=== PATIENT | male | born 1985 | race Caucasian/White ===

== ENCOUNTER 2019-11-08 00:10 | Emergency (ER) | payer SELFPAY ==
--- NOTE | ~2019-11-08 | CT_ITS ---
EXAMINATION: CT lumbar spine wo con DATE: 11/08/2019 00:40 INDICATION: Low back pain, radiating to right leg; lifting injury. TECHNIQUE: Computed tomography (CT) of the lumbar spine was performed without intravenous contrast. T he mA was adjusted according to patient size. Iterative reconstruction technique was employed. Exam d ose: 212.84 mGy-cm total exam DLP. Lumbar spine COMPARISON: None FINDINGS: No fracture, dislocation, spondylolysis or spondylolisthesis of the lumbar spine. No bone d estruction is detected. There is moderate sized broad-based disc bulge at the L5-S1 level resulting in mild central canal suzie nosis. Mild left-sided neural foraminal stenosis at the L5-S1 level. The sacroiliac joints are intact. Incidental finding of probable 3 cm right renal cyst IMPRESSION: Moderate posterior disc bulging at L5-S1 and mild left-sided neural foraminal stenosis a t L5-S1 Reviewed, dictated and finalized at [facility]. Reviewed, dictated and finalized at [facility]. IMPRESSION: Moderate posterior disc bulging at L5-S1 and mild left-sided neura l foraminal stenosis at L5-S1
[2019-11-08 00:13] VITALS: BP 124/71; PULSE 63; RESP 16; TEMP 36.7; O2SAT 100
--- NOTE | 2019-11-08 00:22 | ED.BACK ---
HPI - Back Pain/Injury General Chief Complaint: Back Pain/Injury Stated Complaint: Lower Back Pain Time Seen by Provider: 11/08/19 00:22 Source: patient and family Mode of arrival: ambulatory Limitations: no limitations History of Present Illness HPI Narrative: The patient is a 34-year-old male who presents for evaluation of back pain. Patient reports that he was lifting a heavy dresser yesterday when he felt a pop in his lower back with immediate lower back pain. Patient reports that the pain is aching, sharp in nature, worse with movement and radiates into the lower right leg. No buttock pain. Patient has been ambulatory, but this does aggravate his pain. Forward bending also makes the pain worse. No history of cancer. No bowel or bladder incontinence. No numbness. Patient has been taking ibuprofen for the pain with minimal improvement. Patient denies fever, nausea or vomiting. Related Data Allergies Allergy/AdvReac Type Severity Reaction Status Date / Time No Known Allergies Allergy Unverified 11/28/18 02:16 Review of Systems Review of Systems: Narrative: CONSTITUTIONAL: Denies fever, chills, or sweats. CARDIOVASCULAR: Denies chest pain RESPIRATORY: Denies cough or dyspnea. GASTROINTESTINAL: Denies abdominal pain, nausea, vomiting, or diarrhea. GENITOURINARY: Denies dysuria or hematuria. SKIN: Denies rash or itching. MUSCULOSKELETAL: Reports back pain NEUROLOGIC: Denies headache, numbness, or weakness. PMFSH Past Medical History Medical History (Updated 11/08/19 @ 01:01 by Mindy Mejia MD) History of pneumothorax Social History Social History (Updated 11/08/19 @ 00:31 by Mindy Mejia MD) Smoking status: Current every day smoker Tobacco type: cigarettes Second hand tobacco smoke exposure: Yes Alcohol intake: never Substance use: current Substance use type: marijuana Living arrangements: with family Exam Narrative: Exam Narrative: GENERAL: Well-appearing, well-nourished, and in no acute distress. HEAD: Normocephalic, atraumatic. EYES: PERRLA and EOMI. ENT: Nares clear, no rhinorrhea or epistaxis. Mucous membranes moist. NECK: Supple. THORAX: No cervical, thoracic midline pain. + Lumbar midline pain. CHEST: Clear to auscultation. No respiratory distress. HEART: Regular rate and rhythm. No murmur heard. Normal peripheral pulses. ABDOMEN: Soft, nontender, nondistended, normal active bowel sounds. EXTREMITIES: Normal range of motion. No edema. SKIN: Warm, dry, no rash. NEURO: No focal deficits. Alert and oriented x3. EOMs intact without nystagmus. No facial droop/asymmetry noted bilaterally. Grimace intact. Intact sensation in face. Hearing intact bilaterally. Shoulder shrug intact. Strength 5/5 bilateral upper extremities. Strength 5/5 bilateral lower extremities. Reflexes 2+ patellar. Intact EHL/FHL. Intact neurovascularly. Ambulatory with a narrow based steady gait, no ataxia. Course Vital Signs Vital signs: Vital Signs Temperature 36.7 C 11/08/19 00:13 Pulse Rate 63 11/08/19 00:13 Respiratory Rate 16 11/08/19 00:13 Blood Pressure 124/71 11/08/19 00:13 Pulse Oximetry 100 11/08/19 00:13 Temperature 36.7 C 11/08/19 00:13 Pulse Rate 63 11/08/19 00:13 Respiratory Rate 16 11/08/19 00:13 Blood Pressure 124/71 11/08/19 00:13 Pulse Oximetry 100 11/08/19 00:13 MDM - Back Pain/Injury MDM Narrative Medical decision making narrative: Given History and Exam the patient appears to be at low risk for Spinal Cord Compression Syndrome, Vertebral Malignancy/Mets, acute Spinal Fracture, Vertebral Osteomyelitis, Epidural Abscess, Infected or Obstructing Kidney Stone. Their presentation appears most likely to be secondary to non-emergent musculoskeletal etiology vs non-emergent disc herniation. Pain is reproducible, and patient has no other high risk factors such as history of malignancy, weight loss, infectious symptoms. ED Workup: Imaging confirms L5
[2019-11-08] MEDS: DIAZEPAM 5 MG TABLET PO (01:07)
[2019-11-08] MEDS: ACETAMINOPHEN 500 MG TABLET 1000 MG PO (01:08)
[2019-11-08] MEDS: KETOROLAC (*BKC) 60 MG/2 ML VIAL 30 MG IM (01:12)
[2019-11-08 01:26] VITALS: BP 133/72; PULSE 80; RESP 16; TEMP 36.8; O2SAT 100
== END 2019-11-08 01:27 | disposition home or self-care (01) ==
PROVIDERS: Emergency Provider Emergency Medicine
DX: M51.27 Other intervertebral disc displacement, lumbosacral region (principal); S39.012A Strain of muscle, fascia and tendon of lower back, initial encounter; F17.210 Nicotine dependence, cigarettes, uncomplicated; X50.0XXA Overexertion from strenuous movement or load, initial encounter
CPT/HCPCS: 72131; 96372; 99284; A9270; J1100; J1885

== ENCOUNTER 2021-01-21 21:07 | Emergency (ER) | payer SELFPAY ==
--- NOTE | ~2021-01-21 | XR_ITS ---
XR foot RT min 3V 01/21/2021 21:45 INDICATION: Right foot pain PROCEDURE: 4 views right foot COMPARISON: 03/13/2016 FINDINGS: There is a healed right third metatarsal fracture Lisfranc joint intact. No acute fracture or traumatic malalignment. The soft tissues appear within normal limits. No foreign bodies are ident ified. IMPRESSION: 1: NO ACUTE BONE OR JOINT ABNORMALITY IDENTIFIED. Reviewed, dictated and finalized at [facility].
[2021-01-21 21:08] VITALS: BP 120/74; PULSE 90; RESP 16; TEMP 37.3; O2SAT 97
--- NOTE | 2021-01-21 21:32 | ED.EXTPRO ---
HPI - Extremity Problem General Chief complaint: Extremity Problem,Nontraumatic Stated complaint: thinks foot is broken Time Seen by Provider: 01/21/21 21:15 Source: patient Mode of arrival: ambulatory Limitations: no limitations History of Present Illness HPI Narrative: Patient is a 35 year old male who presents complaining of right foot pain. Patient reports kicked a box he thought was empty. He reports pain to dorsal right foot, mild swelling noted. He denies taking over the counter medications for pain prior to arrival. Reports pain with ambulation. Denies all other complaints at this time, denies significant medical history. MD Complaint: extremity pain Related Data Allergies Allergy/AdvReac Type Severity Reaction Status Date / Time No Known Allergies Allergy Verified 01/21/21 21:23 Review of Systems Review of Systems: Narrative: CONSTITUTIONAL: Denies fever, chills, or sweats. EYES: Denies visual changes, redness, or discharge. ENT: Denies rhinorrhea, congestion, sore throat, or otalgia. CARDIOVASCULAR: Denies chest pain, palpitations, or edema. RESPIRATORY: Denies cough or dyspnea. GASTROINTESTINAL: Denies abdominal pain, nausea, vomiting, or diarrhea. GENITOURINARY: Denies dysuria or hematuria. SKIN: Denies rash or itching. MUSCULOSKELETAL: Right foot pain NEUROLOGIC: Denies headache, numbness, dizziness, or weakness. PSYCHIATRIC: Denies anxiety or depression. PMFSH Past Medical History Medical History Asthma History of pneumothorax Social History Social History Smoking status: Current every day smoker Tobacco type: cigarettes Second hand tobacco smoke exposure: Yes Alcohol intake: never Substance use: current Substance use type: marijuana Gender identity (if verbalized by the patient): Male Comments At the time of signature, I have reviewed and agree with nursing past medical, surgical, social, and family history unless otherwise noted. Please see nursing chart for further information. There is no relevant family history pertinent to the presenting complaint. Exam Narrative: Exam Narrative: GENERAL: Well-appearing, well-nourished, and in no acute distress. HEAD: Normocephalic, atraumatic. EYES: EOMI. No redness or drainage. Conjunctiva are normal. ENT: Mucous membranes pink and moist. CHEST: No respiratory distress. Clear to auscultation. HEART: Regular rate and rhythm. No murmur appreciated. Normal peripheral pulses. EXTREMITIES: Mild edema to right dorsal foot, tenderness with palpation at third and fourth metatarsal SKIN: Warm, dry, no rash. NEURO: No focal deficits. Alert and oriented x3. Gait steady. PSYCH: Normal affect. No signs of depression or anxiety. Course Vital Signs Vital signs: Vital Signs Temperature 37.3 C 01/21/21 21:08 Pulse Rate 90 01/21/21 21:08 Respiratory Rate 16 01/21/21 21:08 Blood Pressure 120/74 01/21/21 21:08 Pulse Oximetry 97 01/21/21 21:08 Temperature 37.3 C 01/21/21 21:08 Pulse Rate 90 01/21/21 21:08 Respiratory Rate 16 01/21/21 21:08 Blood Pressure 120/74 01/21/21 21:08 Pulse Oximetry 97 01/21/21 21:08 Reviewed MDM - Extremity (Nontraumatic) MDM Narrative Medical decision making narrative: Patient's x-ray shows no acute osseous abnormality. Discussed with patient most likely contusion. [place] wrap for comfort and postop shoe as needed. Patient agrees with plan of care. Patient is stable for discharge home with outpatient follow-up as needed. Differential Diagnosis Differential diagnosis: Likely other (Strain, sprain, contusion) Imaging Data Radiologist's impression: ITS Impressions Foot X-Ray 01/21/21 21:50 IMPRESSION: 1: NO ACUTE BONE OR JOINT ABNORMALITY IDENTIFIED. Critical Care Time Critical Care Time Critical Care Time: No Discharge Plan Discharge Clinical Impressio
[2021-01-21 22:12] VITALS: BP 136/78; PULSE 87; RESP 18; O2SAT 100
== END 2021-01-21 22:15 | disposition home or self-care (01) ==
PROVIDERS: Emergency Provider Nurse Practitioner
DX: S90.31XA Contusion of right foot, initial encounter (principal); J45.909 Unspecified asthma, uncomplicated; F17.210 Nicotine dependence, cigarettes, uncomplicated; W22.8XXA Striking against or struck by other objects, initial encounter
CPT/HCPCS: 73630; 99283

== ENCOUNTER 2022-03-08 17:25 | Emergency (ER) | payer SELFPAY ==
[2022-03-08 17:27] VITALS: BP 131/84; PULSE 84; RESP 20; TEMP 36.3; O2SAT 94
--- NOTE | 2022-03-08 18:21 | ED.LOWEXIN ---
HPI - Extremity Injury (Lower) General Chief Complaint: Extremity Injury, Lower Stated Complaint: rt hip pain Time Seen by Provider: 03/08/22 17:31 History of Present Illness HPI Narrative: 37-year-old male presents the emergency room for evaluation of right leg pain. Patient states states he slept in his recliner chair last night, and believes he might of rolled over to his right hip. Patient states that he woke up this morning with tenderness over his right hip, that is worse with movement and ambulation. Patient denies any injury or trauma. States the pain is kind of sharp and stabbing pain that radiates into his thigh. Related Data Allergies Allergy/AdvReac Type Severity Reaction Status Date / Time No Known Allergies Allergy Verified 01/21/21 21:23 Review of Systems Review of Systems: CONSTITUTIONAL: Denies fever, chills, or sweats. EYES: Denies visual changes, redness, or discharge. ENT: Denies rhinorrhea, congestion, sore throat, or otalgia. CARDIOVASCULAR: Denies chest pain, palpitations, or edema. RESPIRATORY: Denies cough or dyspnea. GASTROINTESTINAL: Denies abdominal pain, nausea, vomiting, or diarrhea. GENITOURINARY: Denies dysuria or hematuria. SKIN: Denies rash or itching. MUSCULOSKELETAL: Reports right hip pain NEUROLOGIC: Denies headache, numbness, dizziness, or weakness. PSYCHIATRIC: Denies anxiety or depression. PMFSH Past Medical History Medical History Asthma History of pneumothorax Social History Social History Smoking status: Current every day smoker Tobacco type: cigarettes Second hand tobacco smoke exposure: Yes Alcohol intake: never Substance use: current Substance use type: marijuana Gender identity (if verbalized by the patient): Male Exam Narrative: GENERAL: Well-appearing, well-nourished, no physical limitations, and in no acute distress. HEAD: Normocephalic, atraumatic. EYES: Conjunctivae normal, PERRLA and EOMI. CHEST: Clear to auscultation. No respiratory distress. No wheezes rales or rhonchi. No tenderness. HEART: Regular rate and rhythm. No murmur heard. Normal peripheral pulses. BACK: No CVA tenderness; No cervical/thoracic/lumbar tenderness, step-offs, bony abnormality; FROM EXTREMITIES: Right lower extremity: Tenderness over the trochanter with mild soft tissue swelling. No ecchymosis no bony abnormality. Pain elicited when hip is moved and IR, ER, and flexion SKIN: Warm, dry, no rash. No noted wounds NEURO: No focal deficits. Alert and oriented x3. MAEW. CN's II-XI intact bilaterally, normal gait PSYCH: Cooperative. Normal mood and affect. Course Vital Signs Vital signs: Vital Signs Temperature 36.3 C L 03/08/22 17:27 Pulse Rate 84 03/08/22 17:27 Respiratory Rate 20 03/08/22 17:27 Blood Pressure 131/84 03/08/22 17:27 Pulse Oximetry 94 03/08/22 17:27 Oxygen Delivery Room Air 03/08/22 17:27 Temperature 36.3 C L 03/08/22 17:27 Pulse Rate 84 03/08/22 17:27 Respiratory Rate 20 03/08/22 17:27 Blood Pressure 131/84 03/08/22 17:27 Pulse Oximetry 94 03/08/22 17:27 Oxygen Delivery Room Air 03/08/22 17:27 Discharge Plan Discharge Clinical Impression: Greater trochanteric bursitis of right hip Patient Disposition: Home, Self-Care Condition: Stable Instructions: Antibiotic Form Additional Instructions: Tylenol and ibuprofen as needed. May apply ice to the affected area to decrease swelling. Prescriptions: New prednisone 20 mg tablet 60 mg PO DAILY 5 Days Qty: 15 0RF No Action lidocaine 4 % adhesive patch,medicated 1 patch TOPICAL Q24H 20 Days Qty: 20 0RF Rx Instructions: may leave on for up to 12 hrs ibuprofen 400 mg tablet 400 mg PO TID PRN (Reason: fever or pain) 10 Days Qty: 30 0RF acetaminophen 500 mg capsule 500 mg PO Q6H PRN (Reason: fever or pain) Qty:
== END 2022-03-08 19:18 | disposition home or self-care (01) ==
PROVIDERS: Emergency Provider Nurse Practitioner Family
DX: M70.61 Trochanteric bursitis, right hip (principal); J45.909 Unspecified asthma, uncomplicated
CPT/HCPCS: 96372; 99283; J1100

== ENCOUNTER 2023-05-27 22:04 | Emergency (ER) | payer SELFPAY ==
--- NOTE | ~2023-05-27 | XR_ITS ---
EXAMINATION: XR chest 2V DATE: 05/27/2023 22:35 INDICATION: Cough, hemoptysis TECHNIQUE: PA and lateral views of the chest are obtained. COMPARISON: None available FINDINGS: The lungs are hyperinflated but free of acute opacities. No pleural effusion or pneumothora x. The cardiomediastinal silhouette is normal. There is mild thoracic spondylosis. IMPRESSION: 1. No acute cardiopulmonary abnormality. Reviewed, dictated and finalized at [facility].
[2023-05-27 22:11] VITALS: BP 110/73; PULSE 83; RESP 18; TEMP 36.4; O2SAT 98
[2023-05-27 23:17] VITALS: PULSE 74
[2023-05-27 23:18] VITALS: BP 125/88; PULSE 72; RESP 12; TEMP 36.6; O2SAT 99
[2023-05-27 23:19] VITALS: O2SAT 100
--- NOTE | 2023-05-27 23:21 | PC.NURSE ---
Patient states his anxiety is bad right now and would like something for it
[2023-05-28 00:18] VITALS: BP 112/71; PULSE 60; RESP 18; O2SAT 96
--- NOTE | 2023-05-28 01:35 | ED.GENADULT ---
HPI - General Adult General Chief complaint: Unspecified Stated complaint: coughing up blood Time Seen by Provider: 05/28/23 00:27 History of Present Illness HPI narrative: Patient 38-year-old gentleman presents emerged department with chief complaint of cough/hemoptysis Patient states that today he started coughing and had some yellowish sputum and then also had some blood-tinged sputum. The patient states that he is a smoker and reports that he has had some nasal drainage as well. Related Data Allergies Allergy/AdvReac Type Severity Reaction Status Date / Time No Known Allergies Allergy Verified 01/21/21 21:23 Review of Systems Review of Systems: A 10 system review of systems was completed on the patient and is negative except for what is stated in the HPI. Nursing and ancillary documentation was reviewed. [facility] Past Medical History Medical History Asthma History of pneumothorax Social History Social History Smoking status: Current every day smoker Tobacco type: cigarettes Second hand tobacco smoke exposure: Yes Alcohol intake: never Substance use: current Substance use type: marijuana Living arrangements: with family Gender identity (if verbalized by the patient): Male Exam Narrative: GENERAL: Well-appearing, well-nourished, and in no acute distress. HEAD: Normocephalic, atraumatic. EYES: PERRLA and EOMI. ENT: Nares clear, no rhinorrhea or epistaxis. Mucous membranes moist. NECK: Supple. CHEST: Clear to auscultation. No respiratory distress. HEART: Regular rate and rhythm. No murmur heard. Normal peripheral pulses. ABDOMEN: Soft, nontender, nondistended, normal active bowel sounds. EXTREMITIES: Normal range of motion. No edema. SKIN: Warm, dry, no rash. NEURO: No focal deficits. Alert and oriented x3. PSYCH: Normal mood and affect. Course Vital Signs Vital signs: Vital Signs Temperature 36.4 C 05/27/23 22:11 Pulse Rate 83 05/27/23 22:11 Respiratory Rate 18 05/27/23 22:11 Blood Pressure 110/73 05/27/23 22:11 Pulse Oximetry 98 05/27/23 22:11 Oxygen Delivery Room Air 05/27/23 22:11 Temperature 36.6 C 05/27/23 23:18 Pulse Rate 60 05/28/23 00:18 Respiratory Rate 18 05/28/23 00:18 Blood Pressure 112/71 05/28/23 00:18 Pulse Oximetry 96 05/28/23 00:18 Oxygen Delivery Room Air 05/27/23 23:19 Medical Decision Making MDM Narrative Medical decision making narrative: Differential diagnosis includes pneumonia, pneumothorax, bronchitis, hemorrhage Patient underwent a chest x-ray that showed no evidence of pneumothorax no evidence of pneumonia. Patient's clinical exam is consistent with bacterial bronchitis the patient was started on doxycycline and given a prescription for Tessalon Perles. Patient follow-up with primary care Vital Signs Vital Signs: Vital Signs Temperature 36.4 C 05/27/23 22:11 Pulse Rate 83 05/27/23 22:11 Respiratory Rate 18 05/27/23 22:11 Blood Pressure 110/73 05/27/23 22:11 Pulse Oximetry 98 05/27/23 22:11 Oxygen Delivery Room Air 05/27/23 22:11 Temperature 36.6 C 05/27/23 23:18 Pulse Rate 60 05/28/23 00:18 Respiratory Rate 18 05/28/23 00:18 Blood Pressure 112/71 05/28/23 00:18 Pulse Oximetry 96 05/28/23 00:18 Oxygen Delivery Room Air 05/27/23 23:19 Discharge Plan Discharge Clinical Impression: Acute bacterial bronchitis Patient Disposition: Home, Self-Care Condition: Stable Instructions: Antibiotic Form, Acute Bronchitis (ED) Prescriptions: New doxycycline hyclate 100 mg tablet 100 mg PO BID Qty: 14 0RF No Action prednisone 20 mg tablet 60 mg PO DAILY 5 Days Qty: 15 0RF lidocaine 4 % adhesive patch,medicated 1 patch TOPICAL Q24H 20 Days Qty: 20 0RF Rx Instructions: may leave on f
[2023-05-28 01:49] VITALS: BP 125/85; PULSE 71; RESP 14; TEMP 36.6; O2SAT 95
== END 2023-05-28 01:50 | disposition home or self-care (01) ==
PROVIDERS: Emergency Provider Emergency Medicine
DX: J20.8 Acute bronchitis due to other specified organisms (principal); B96.89 Other specified bacterial agents as the cause of diseases classified elsewhere; J45.909 Unspecified asthma, uncomplicated; F17.210 Nicotine dependence, cigarettes, uncomplicated
CPT/HCPCS: 71046; 99283